=== PATIENT | male | born 2000 | race Caucasian/White ===

== ENCOUNTER 2019-12-12 21:08 | Emergency (ER) | payer MEDICAID, SELFPAY ==
[2019-12-12 21:22] VITALS: BP 128/68; PULSE 85; RESP 16; TEMP 37; O2SAT 98
[2019-12-12 21:31] VITALS: BP 128/68; PULSE 98; RESP 18; O2SAT 99
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
[2019-12-12 23:06] LABS: Basophils # 0.1 10^3/uL (0.0-0.1); Basophils % 0.3 %; Eosinophils # 0.1 10^3/uL (0.0-0.8); Eosinophils % 0.6 %; Hematocrit 39.5 % (42.0-52.0); Lymphocytes # 0.8 10^3/uL (1.5-6.5); Lymphocytes % 4.7 %; Mean Corpuscular HGB Conc 35.4 g/dL (30.0-36.0); Mean Corpuscular Hemoglobin 30.7 pg (28.0-34.0); Mean Corpuscular Volume 86.6 fL (80-94); Mean Platelet Volume 9.2 fL (7.4-10.4); Monocytes # 1.3 10^3/uL (0.2-0.9); Monocytes % 7.7 %; Neutrophils # 14.21 10^3/uL (1.8-8.0); Neutrophils % 86.3 %; Nucleated Red Blood Cells % 0 %; Platelet Count 284 10^3/cmm (130-400); Red Blood Count 4.56 10^6/uL (4.1-5.3); Red Cell Distribution Width 11.9 % (12.1-15.1); White Blood Count 16.5 10^3/uL (4.5-13.0)
--- NOTE | 2019-12-12 23:06 | PC.NURSE ---
while at bedside pt is in nad. pt report given to adan rivera assumed care.
[2019-12-12 23:18] LABS: INR 1.07 (0.8-1.2)
[2019-12-12 23:19] LABS: Partial Thromboplastin Time 34.8 SECONDS (23.9-36.7)
[2019-12-12 23:22] VITALS: BP 111/74; PULSE 92; RESP 14; O2SAT 100
[2019-12-12 23:24] LABS: Alanine Aminotransferase 21 U/L (0-41); Albumin Level 4.6 g/dL (3.5-5.2); Alkaline Phosphatase 69 IU/L (40-130); Aspartate Amino Transferase 26 U/L (0-40); Blood Urea Nitrogen 21 mg/dL (6-20); Calcium 8.8 mg/dL (8.5-10.5); Carbon Dioxide 26 mmol/L (22-29); Chloride 99 mmol/L (98-107); Globulin 3.3 g/dL (1.3-4.6); Glomerular Filtration Rate 143.8 mL/min (90-130); Glucose 107 mg/dL (65-115); Osmolality Calculated 279 mOsm/kg (285-295); Sodium 136 mmol/L (136-145); Total Bilirubin 0.7 mg/dL (0.15-1.2); Total Protein 7.9 g/dL (6.6-8.7)
== END 2019-12-12 23:53 ==
PROVIDERS: Emergency Provider Physician Assistant
DX: S06.5X9A Traumatic subdural hemorrhage with loss of consciousness of unspecified duration, initial encounter (principal); W19.XXXA Unspecified fall, initial encounter
CPT/HCPCS: 12345; 36415; 70450; 80053; 85025; 85610; 85730; 96365; 99283; 99285; J1953